=== PATIENT | female | born 1985 | race Caucasian/White ===

== ENCOUNTER 2024-05-23 07:41 | Emergency (ER) | payer OTHER ==
[~2024-05-23] VITALS: Ht 167.6 cm; Wt 77.1 kg
[2024-05-23] MEDS ORDERED: JUNE1TAB PO (08:06)
[2024-05-23] MEDS ORDERED: VALA500T5 PO (08:06)
[2024-05-23] MEDS ORDERED: CLAR10CA3 PO (08:06)
[2024-05-23 09:41] LABS: HEMATOCRIT 38.5 % (36.0-47.0); HEMOGLOBIN 13.1 g/dl (12.0-15.5); MEAN CORPUSCULAR HEMOGLOBIN 31.1 pg (27.0-33.0); MEAN CORPUSCULAR VOLUME 91.4 fl (80.0-96.0); PLATELET COUNT, AUTOMATED 271 10^3/uL (150-450); RED BLOOD COUNT 4.21 10^6/uL (4.00-5.40); WHITE BLOOD COUNT 6.6 10^3/uL (4.0-10.0)
[2024-05-23] MEDS ORDERED: ISOVUE-370 76% 100ML VIAL As Ordered ONE (09:57)
[2024-05-23 11:55] VITALS: BP 112/72; TEMP 97.9; O2SAT 100
== END 2024-05-23 11:56 | disposition home or self-care (01) ==
LOC: M ED 07:41
DX: R55 Syncope and collapse (principal); R94.31 Abnormal electrocardiogram [ECG] [EKG]; Z79.2 Long term (current) use of antibiotics; Z79.899 Other long term (current) drug therapy
CPT/HCPCS: 36415; 70498; 80047; 83735; 84702; 85027; 93005; 99284; Q9967